=== PATIENT | female | born 1990 | race African-American/Black ===

== ENCOUNTER 2020-08-30 05:59 | Emergency (ER) | payer MEDICAID ==
[~2020-08-30] VITALS: Ht 165.1 cm; Wt 86.2 kg
[2020-08-30 06:00] VITALS: BP 131/93
[2020-08-30 07:10] LABS: Basophils # (auto) 0 10 ^3/uL (0-0.2); Basophils % (auto) 0.3 % (0.0-2.0); Eosinophils # (auto) 0.1 10 ^3/uL (0-0.8); Eosinophils % (auto) 0.9 % (0.0-7.0); Hematocrit 42.3 % (36.0-46.0); Hemoglobin 14.3 g/dL (12.2-16.2); Lymphocytes # (auto) 3.3 10 ^3/uL (0.4-5.4); Mean Corpuscular Hemoglobin 30.4 pg (28.0-32.0); Mean Corpuscular Hgb Conc. 33.8 g/dL (32.0-36.0); Mean Corpuscular Volume 90.2 fL (80.0-100.0); Monocytes # (auto) 0.5 10 ^3/uL (0-1.3); Monocytes % (auto) 3.9 % (0.0-12.0); Neutrophils # (auto) 9.6 10 ^3/uL (1.6-8.6); Neutrophils % (auto) 70.9 % (37.0-80.0); Platelet Count (auto) 358 10^3/uL (140-450); Red Blood Cells 4.69 10^6/uL (4.0-5.20); White Blood Cell 13.5 10^3/uL (4.4-10.8)
[2020-08-30 07:31] LABS: INR 0.96 (0.9-1.15); Partial Thromboplastin Time 31.9 sec (23.0-31.2)
[2020-08-30 07:32] LABS: Albumin 3.9 g/dL (3.4-5.0); BUN/Creatinine Ratio 9.6; Calcium 8.8 mg/dL (8.5-10.1); Potassium 3.6 mmol/L (3.5-5.1)
[2020-08-30 07:35] LABS: Bilirubin, Total 0.3 mg/dL (0.2-1.0); Total Protein 8.7 g/dL (6.4-8.2)
== END 2020-08-30 08:10 | disposition home or self-care (01) ==
LOC: ER 05:59
DX: K64.9 Unspecified hemorrhoids (principal); K62.5 Hemorrhage of anus and rectum
CPT/HCPCS: 36415; 74176; 80053; 85025; 85610; 85730